=== PATIENT | female | born 1995 | race Caucasian/White ===

== ENCOUNTER 2021-06-02 14:40 | Outpatient (REF) | payer OTHER, SELFPAY ==
[2021-06-02 17:31] LABS: Influenza A PCR NEGATIVE (Negative); Influenza B PCR NEGATIVE (Negative); Resp Syncy Virus RNA Qual PCR NEGATIVE (Negative); SARS COV2 PCR INHOUSE NEGATIVE (Negative)
== END 2021-06-02 14:41 | disposition home or self-care (01) ==
LOC: HO.LAB 14:40
PROVIDERS: Visit Provider Physician Assistant Medical
DX: Z20.822 Contact with and (suspected) exposure to COVID-19 (principal); J06.9 Acute upper respiratory infection, unspecified
CPT/HCPCS: 0241U; 36415

== ENCOUNTER 2022-06-28 09:17 | Outpatient (REF) | payer OTHER, SELFPAY ==
[2022-06-28 11:54] LABS: Hematocrit 44.1 % (37.0-47.0); Hemoglobin 14.1 g/dl (12.0-16.0); Mean Corpuscular Hemoglobin 27.1 pg (27.0-33.0); Mean Corpuscular Volume 84.8 fL (80.0-98.0); Mean Platelet Volume 9.2 fL (9.4-12.3); Platelet Count 339 X10*3/uL (160-400); White Blood Count 5.4 X10*3/uL (4.8-10.8)
[2022-06-28 12:06] LABS: Anion Gap 16 (12-20); Blood Urea Nitrogen 7 mg/dL (9-16); Carbon Dioxide 23 mmol/L (22-29); Chloride 104 mmol/L (96-108); Estimated Glomerular Filt Rate > 60; Glucose Random 93 mg/dL (60-115); Potassium 4.2 mmol/L (3.3-5.1); Sodium 139 mmol/L (135-145)
[2022-06-28 12:31] LABS: Thyroid Stimulating Hormone 0.66 uIU/mL (0.32-4.0)
== END 2022-06-28 09:18 | disposition home or self-care (01) ==
LOC: HO.HMGCLDS 09:17
PROVIDERS: PCP Internal Medicine; Visit Provider Internal Medicine
DX: J45.909 Unspecified asthma, uncomplicated (principal)
CPT/HCPCS: 36415; 80048; 84443; 85027

== ENCOUNTER 2023-09-26 07:49 | Outpatient (AMB) | payer OTHER, SELFPAY ==
[2023-09-26 08:10] VITALS: BP 110/76; PULSE 97; O2SAT 96; BMI 39.1
--- NOTE | 2023-09-26 08:10 | A.OFFPC_ITS ---
Vital Signs 09/26/23 08:10 Height 5 ft Weight 200 lb BMI 39.1 BP 110/76 Blood Pressure Location Lt brachial Position Sitting Pulse 97 Pulse Source Pulse Oximeter Pulse Oximetry (%) 96 Oxygen Delivery Method Room Air Intake Visit Reasons: PE Intake Note: Pt is here today for PE. Pt states that she has upcoming appt for a pap with [facility] [place]. Allergies No Known Allergies Allergy (Verified 09/26/23 08:18) Medication List - Last Reconciled 09/26/23 by Columba Rollins MD albuterol sulfate 90 mcg/actuation (Ventolin HFA) 1 inh inhalation QID PRN Tobacco use date assessed: 09/26/23 Dental Screening Dental Screen Date: 09/26/23 Did you have a dental visit in the last 12 months?: Yes Did you have a dental problem in the last 6 months where you did not have access to dental care?: No Was dental information given to patient?: Patient has dentist HPI PE HPI Details Pt presents for PE. Pt c/o night sweats for 1 year, most nights and insomnia, getting 4 hours of sleep. Pt has difficulty concentrating at work and feeling anxious that she will lose her job for the last 6 months. Patient denies suicidal ideation but has been feeling depressed most days of the week. PFSH Family History Father Schizophrenia Thyroid disease Mother Depression Social History Household Members Other:: works as manager corporate strategy company, exercise 3 x a week, lives with boyfriend Housing: Apartment Patient Tobacco Use Status: Never used Tobacco e-Cigarette/Vaping Use: Never Used service: No Current occupational status: employed Cognitive needs: No Hearing needs: No Vision needs: Yes Questionnaire PHQ-9 Over the last 2 weeks, how often have you been bothered by any of the following problems? 1. Little interest or pleasure in doing things: more than half the days 2. Feeling down, depressed, or hopeless: nearly every day 3. Trouble falling or staying asleep, or sleeping too much: nearly every day 4. Feeling tired or having little energy: nearly every day 5. Poor appetite or overeating: nearly every day 6. Feeling bad about yourself - or that you are a failure or have let yourself or your family down: nearly every day 7. Trouble concentrating on things, such as reading the newspaper or watching television: nearly every day 8. Moving or speaking so slowly that other people could have noticed. Or the opposite - being so fidgety or restless that you have been moving around a lot more than usual: more than half the days 9. Thoughts that you would be better off or of hurting yourself in some way: not at all Total score: 22 Depression Screening Interpretation: Positive Depression Screening Done: Yes 78980 - PHQ-9 Billing: Yes Source: Developed by Drs. Jaime Ward, Roxie Sauer, Alfonso Farley and colleagues, with an educational tanya from [employer]. Thrive Questionnaire Date Thrive assessed: 09/26/23 I am a: Patient What is your living situation today?: I have a steady place to live Within the past 12 months, did the food you bought not last and you didn't have the money to get more?: Never true Within the past 12 months, did you worry whether your food would run out before you got money to buy more?: Never true Do you have trouble paying for medicines?: No Do you have trouble getting transportation to medical appointments?: No Do you have trouble paying your heating and electricity bill?: No Do you have trouble taking care of your child, family member or friend?: No Do you have trouble with day-to-day activities such as bathing, preparing meals, shopping, managing finances, etc.?: No Are you currently unemployed and looking for a job?: No Are you interested in more education?: No Please select the resources that you would like help with: None Currently or been in a relationship where the following occur: no concerns reported THRIVE Score: 0 AUDIT C Alcohol Use Questionnaire (AUDIT-C) 1. How often do you have a drink containing alcohol?: Monthly or less 2. How many drinks containing alcohol do you have on a typical day when you are drinking?: 1 or 2 3. How often do you have six or more drinks on one occasion?: Never Total Score: 1 NOLVIA-7 AMB Questionnaire NOLVIA-7 Date NOLVIA - 7 assessed: 09/26/23 Feeling nervous, anxious, or on edge: 3 = Nearly every day Not being able to stop or control worryin = Nearly every day Worrying too much about different things: 3 = Nearly every day Trouble relaxin = Nearly every day Being so restless that it is hard to sit still: 2 = More than half the days Becoming easily annoyed or irritable: 2 = More than half the days Feeling afraid as if something awful might happen: 3 = Nearly every day Total NOLVIA-7 score (0-4 normal; 5-9 mild; 10-14 moderate; 15-21 severe): 19 Source: Developed by Drs. Jaime Ward, Roxie Sauer, Alfonso Farley and colleagues, with an educational tanya from [employer]. NOLVIA-7 Assessment Billing NOLVIA-7 Assessment Tool: NOLVIA-7 Assessment 64429 Review of Systems Const All systems reviewed & are unremarkable except as noted in HPI and below Reports no additional complaints Eyes Reports no additional complaints ENT Reports no additional complaints Card Reports no additional complaints Resp Reports no additional complaints GI Reports no additional complaints Reports no additional complaints Physical exam (Primary Care) Vital Signs: Last Vital Signs Pulse 97 09/26/23 08:10 BP 110/76 09/26/23 08:10 Pulse Ox 96 09/26/23 08:10 Oxygen Delivery Method Room Air 09/26/23 08:10 BMI result Body Mass Index 39.1 Tobacco/Smoking Status: Tobacco use Status Tobacco use date assessed 09/26/23 09/26/23 08:21 Patient Tobacco Use Status Never used Tobacco 09/26/23 08:21 e-Cigarette/Vaping Use Never Used 09/26/23 08:10 Depression Screening Interpretation: Positive Currently or been in a relationship where the following occur: no concerns reported Const General: no acute distress [facility] Head: Yes normal to inspection Ears: hearing grossly normal bilaterally General nose exam: Normal external nose present Face and sinus: Yes normal facial exam Mouth: Normal oral and palatal mucosa present Throat: Yes posterior oropharynx normal Eyes General: appearance normal, both eyes and all related structures Neck Neck: Yes no lymphadenopathy and Yes supple Resp Effort & Inspection: normal respiratory effort Auscultation: clear to auscultation bilaterally Cardio Rhythm: regular rhythm Heart sounds: S1 normal heart sound present and S2 normal heart sound present GI Inspection: Yes normal to inspection Palpation (GI): Soft to palpation Percussion: Yes normal to percussion Auscultation: normal bowel sounds Assessment and Plan Assessment & Plan (1) Anxiety: Code(s): F41.9 - Anxiety disorder, unspecified Plan: Stress management mindfulness regular physical activity discussed with the patient. She will be referred to counseling. Zoloft 25 for the 1st week then increase to 50 mg daily will be started. Patient will follow-up in 1 month (2) Annual physical exam: Code(s): Z00.00 - Encounter for general adult medical examination without abnormal findings Plan: Well-balanced diet regular physical activity weight loss discussed with the patient. She will have a fasting blood work today. pt will have a Pap smear by [facility] (3) Normal pelvic exam: Comment: [facility] Code(s): Z01.419 - Encounter for gynecological examination (general) (routine) without abnormal findings Orders: Orders Comprehensive Met. Panel Today F41.9 - Anxiety disorder, unspecified, R00.0 - Tachycardia, unspecified, Z00.00 - Encounter for general adult medical examination without abnormal findings Lipid Panel Today F41.9 - Anxiety disorder, unspecified, R00.0 - Tachycardia, unspecified, Z00.00 - Encounter for general adult medical examination without abnormal findings TSH reflex Free T4 Today F41.9 - Anxiety disorder, unspecified, R00.0 - Tachycardia, unspecified, Z00.00 - Encounter for general adult medical examination without abnormal findings Complete Blood Count Auto Diff Today F41.9 - Anxiety disorder, unspecified, R00.0 - Tachycardia, unspecified, Z00.00 - Encounter for general adult medical examination without abnormal findings Vitamin D 25-OH Total Today F41.9 - Anxiety disorder, unspecified, R00.0 - Tachycardia, unspecified, Z00.00 - Encounter for general adult medical examination without abnormal findings Referrals Counseling Referral F41.9 - Anxiety disorder, unspecified Medications: New sertraline 1/2 tabl x 1 week, then 1 QD 50 mg PO DAILY 30 tabs 3RF Coding Level of Care Code Est Pt Prev Care 18-39y(13288) Diagnoses Anxiety F41.9 Annual physical exam Z00.00 Normal pelvic exam Z01.419 Additional Codes NOLVIA-7 Assessment Billing - NOLVIA-7 Assessment Tool: NOLVIA-7 Assessment 05731 ([id number])
== END 2023-09-26 09:24 | disposition home or self-care (01) ==
PROVIDERS: Visit Provider Internal Medicine
DX: Z00.00 Encounter for general adult medical examination without abnormal findings (principal); F41.9 Anxiety disorder, unspecified
CPT/HCPCS: 96127; 99395

== ENCOUNTER 2023-10-06 08:35 | Outpatient (REF) | payer OTHER, SELFPAY ==
[2023-09-26 11:12] LABS: MANUAL DIFF FLAG NO
[2023-09-26 11:38] LABS: Basophils Percent Auto 0.7 % (0-2); Eosinophils Absolute Auto 0.2 X10*3/uL (0.0-0.4); Eosinophils Percent Auto 3.4 % (0-4); Hematocrit 39.5 % (37.0-47.0); Hemoglobin 12.9 g/dl (12.0-16.0); Imm Gran Abs Auto 0.03 X10*3/uL (0.00-0.03); Imm Gran Pct Auto 0.7 % (0.0-0.4); Lymphocytes Percent Auto 21.9 % (20-40); Mean Corpuscular HGB Conc 32.7 g/dl (31.0-35.0); Mean Corpuscular Hemoglobin 27.9 pg (27.0-33.0); Mean Corpuscular Volume 85.3 fL (80.0-98.0); Mean Platelet Volume 9.3 fL (9.4-12.3); Monocytes Absolute Auto 0.3 X10*3/uL (0.1-1.2); Monocytes Percent Auto 6.5 % (2-11); Neutrophils Percent Auto 66.8 % (45-73); Platelet Count 326 X10*3/uL (160-400); Red Blood Count 4.63 X10*6/uL (4.20-5.50); Red Cell Distribution Width 14.2 % (11.0-16.0); White Blood Count 4.5 X10*3/uL (4.8-10.8)
[2023-09-26 12:22] LABS: Alanine Aminotransferase 10 U/L (0-31); Albumin Level 4.3 g/dL (3.5-5.0); Alkaline Phosphatase 63 U/L (39-117); Anion Gap 16 (12-20); Aspartate Amino Transferase 12 U/L (5-31); Bilirubin Total 0.3 mg/dL (0.0-1.0); Blood Urea Nitrogen 9 mg/dL (9-16); Carbon Dioxide 23 mmol/L (22-29); Chloride 107 mmol/L (96-108); Cholesterol 242 mg/dL (<200); Estimated Glomerular Filt Rate > 60; Glucose Random 92 mg/dL (60-115); HDL Cholesterol 46 mg/dL (>40); LDL Cholesterol Calculated 172 mg/dL (<100); Potassium 4.1 mmol/L (3.3-5.1); Sodium 142 mmol/L (135-145); Total Protein 7.3 g/dL (6.5-8.0); Triglycerides 121 mg/dL (<150)
[2023-09-26 13:23] LABS: TSH reflex Free T4 0.49 uIU/mL (0.32-4.0); Vitamin D 25-OH Total 17.4 ng/mL (>30)
== END 2023-10-06 08:36 | disposition home or self-care (01) ==
LOC: HO.HMGCLDS 08:35
PROVIDERS: PCP Internal Medicine; Visit Provider Internal Medicine
DX: Z00.00 Encounter for general adult medical examination without abnormal findings (principal); R00.0 Tachycardia, unspecified; F41.9 Anxiety disorder, unspecified
CPT/HCPCS: 36415; 80053; 80061; 82306; 84443; 85025

== ENCOUNTER 2023-10-16 09:19 | Outpatient (REF) | payer OTHER, SELFPAY ==
[2023-10-17 11:43] LABS: CT PCR NOT DETECTED (Not Detect.); NG PCR NOT DETECTED (Not Detect.)
[2023-10-17 12:48] LABS: BV Int Neg Control Negative (Negative); BV Int Pos Control Positive (Positive)
== END 2023-10-16 09:20 | disposition home or self-care (01) ==
LOC: HO.LNP 09:19
PROVIDERS: PCP Internal Medicine; Visit Provider Advanced Practice Midwife
DX: Z12.4 Encounter for screening for malignant neoplasm of cervix (principal); Z20.2 Contact with and (suspected) exposure to infections with a predominantly sexual mode of transmission; N94.4 Primary dysmenorrhea
CPT/HCPCS: 0353U; 87480; 87510; 87660; 88142

== ENCOUNTER 2023-10-16 09:19 | Outpatient (AMB) | payer OTHER, SELFPAY ==
[2023-10-16 09:21] VITALS: BP 112/70; BMI 38.3
--- NOTE | 2023-10-16 09:21 | MHC.OFFVIS ---
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: Residential Property Tax Appraiser Present (Aidyn) Allergies No Known Allergies Allergy (Verified 10/16/23 09:24) Medication List - Last Reconciled 10/16/23 by Chloe Donis CNM albuterol sulfate 90 mcg/actuation (Ventolin HFA) 1 inh inhalation QID PRN sertraline 50 mg PO DAILY Is last menstrual period known: Yes Last menstrual period: 10/09/23 Post menopausal: No HPI New Patient Annual HPI Details 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 She is looking for therapist but has not found 1 yet mainly her concern is work stress she does not talk with her family too much either but things are good in her relationship they have been together for 12 years and they are planning on eloping with just a few people close family at the wedding this year if she gets she would be fine with it and so she has not interested in contraception. [facility] Medical History (Updated 10/16/23 @ 10:07 by Chloe Donis CNM) Asthma Depression Family History Father Schizophrenia Thyroid disease Mother Depression Social History Household Members Other:: works as [employer], exercise 3 x a week, lives with boyfriend Housing: Apartment Patient Tobacco Use Status: Never used Tobacco e-Cigarette/Vaping Use: Never Used service: No Current occupational status: employed Cognitive needs: No Hearing needs: No Vision needs: Yes Female Reproductive History Menstrual Age of Menarche: 11 Duration of menses: 3-5 days Date of last menstrual period: 10/09/23 control method: none Total pregnancies: 0 Physical Exam Vital Signs: Last Vital Signs BP 112/70 02/26/24 09:21 BMI result Body Mass Index 38.3 Const General: healthy appearing, comfortable, no acute distress, well developed and alert Nutritional Appearance: average body habitus Orientation/consciousness: patient oriented x3 Limitations: no limitations HEENT Head: Yes normocephalic Neck Neck: Yes normal visual inspection Thyroid: Thyroid normal Chest Chest palpation & inspection: normal inspection of the chest Breast/axilla inspection: normal inspection of the breasts and normal inspection of the axillae Breast/axilla palpation: normal palpation of the breasts and normal palpation of the axillae Resp Effort & Inspection: normal respiratory effort GI Inspection: Yes normal to inspection, No Abdominal wall edema and No distended Palpation (GI): Soft to palpation and nontender General: Yes bladder normal to palpation External Female Exam: normal external appearance and normal appearance of the urethra Speculum Exam - Vagina: normal appearance of the vagina, normal palpation and normal vaginal discharge Speculum Exam - Cervix: normal appearance of the cervix, normal palpation and nontender Bimanual exam- vagina & uterus: normal bimanual exam, normal palpation, uterine size normal, bladder normal to palpation, consistency normal, normal palpation, uterine mobility normal, uterine shape normal, No Cervical tenderness present, non-tender and no cervical motion tenderness Bimanual Exam- Adnexa, other: normal adnexae, no masses, normal and No adnexal tenderness Neuro General: patient oriented x3 Assessment & Plan Assessment & Plan (1) Primary dysmenorrhea: Code(s): N94.4 - Primary dysmenorrhea (2) Well woman exam with routine gynecological exam: Code(s): Z01.419 - Encounter for gynecological examination (general) (routine) without abnormal findings (3) Family planning counseling: Comment: preconception counseling Code(s): Z30.09 - Encounter for other general counseling and advice on contraception Plan -----Discussed in this visit the following: healthy balanced diet, regular and consistent exercise, getting recommended health screens, doing the best she can for her particular health concerns, kegel exercises, pap smear screening and followup recommendations, mammography screening and SBE, normal changes in cycles in her life stage--- .---I discussed with pt some of the optimal strategies for planning a , including achieving the best health she can before , including heathy balanced diet, exercise, wt loss to ideal BMI if appropriate, avoiding toxic substances and medications, not smoking, and taking a multivitamin w folic acid daily. Any specific health concerns should be managed before seeking/ putting oneself at risk of pregancy. . I also discussed emotional and relationship and support readiness before embarking on . . She feels they are in a good place right now. Also discussed availability full scope and delivery care in the entire [facility] Discussed that taking ibuprofen on a very limited basis as she has for the 1st day or 2 of her menses is not excessive use but she can review it more carefully with the pharmacist when she picks up her next sertraline dose this week. Since she has not interested in any control at this time there would not be any other hormonal management available to her for her heavy painful periods discussed other comfort measures . Coding Level of Care Code New Pt Prev Care 18-39yr(51713 Diagnoses Primary dysmenorrhea N94.4 Well woman exam with routine gynecological exam Z01.419 Family planning counseling Z30.09
== END 2023-10-16 11:17 | disposition home or self-care (01) ==
LOC: HO.HWSM 09:20
PROVIDERS: PCP Internal Medicine; Visit Provider Advanced Practice Midwife
DX: Z01.419 Encounter for gynecological examination (general) (routine) without abnormal findings (principal); N94.4 Primary dysmenorrhea; Z30.09 Encounter for other general counseling and advice on contraception
CPT/HCPCS: 99385

== ENCOUNTER 2023-10-20 10:54 | Outpatient (AMB) | payer OTHER, SELFPAY ==
[2023-10-20 11:07] VITALS: BP 128/80; PULSE 86; O2SAT 97; BMI 38.7
--- NOTE | 2023-10-20 11:07 | MHC.PC.OV ---
Vital Signs 10/20/23 11:07 Height 5 ft Weight 198 lb BMI 38.7 BP 128/80 Blood Pressure Location Lt brachial Position Sitting Pulse 86 Pulse Source Pulse Oximeter Pulse Oximetry (%) 97 Oxygen Delivery Method Room Air Intake Visit Reasons: 1 month follow up Intake Note: Pt is here today for 1 month follow up visit on anxiety. Allergies No Known Allergies Allergy (Verified 10/20/23 11:09) Medication List - Last Reconciled 10/20/23 by Columba Rollins MD albuterol sulfate 90 mcg/actuation (Ventolin HFA) 1 inh inhalation QID PRN sertraline 50 mg PO DAILY Tobacco use date assessed: 10/20/23 HPI 1 month follow up HPI Details Pt presents for follow-up of chronic anxiety slightly improved on sertraline. Patient is waiting for the appointment with a counselor. She complains of persistent palpitations on and off at least 3 times a week, usually at rest. Patient denies exercise induced palpitations PFSH Medical History (Updated 10/20/23 @ 11:39 by Columba Rollins MD) Asthma Depression Family History Father Schizophrenia Thyroid disease Mother Depression Social History Household Members Other:: works as regional transportation manager company, exercise 3 x a week, lives with boyfriend Housing: Apartment Patient Tobacco Use Status: Never used Tobacco e-Cigarette/Vaping Use: Never Used service: No Current occupational status: employed Cognitive needs: No Hearing needs: No Vision needs: Yes Female Reproductive History Menstrual Age of Menarche: 11 Questionnaire PHQ-9 Over the last 2 weeks, how often have you been bothered by any of the following problems? 1. Little interest or pleasure in doing things: several days 2. Feeling down, depressed, or hopeless: several days 3. Trouble falling or staying asleep, or sleeping too much: nearly every day 4. Feeling tired or having little energy: nearly every day 5. Poor appetite or overeating: more than half the days 6. Feeling bad about yourself - or that you are a failure or have let yourself or your family down: several days 7. Trouble concentrating on things, such as reading the newspaper or watching television: more than half the days 8. Moving or speaking so slowly that other people could have noticed. Or the opposite - being so fidgety or restless that you have been moving around a lot more than usual: several days 9. Thoughts that you would be better off or of hurting yourself in some way: not at all Total score: 14 Depression Screening Interpretation: Positive (Continue sertraline and start counseling follow-up in 4 months or as needed) Depression Screening Follow-up: Existing condition and In treatment Depression Screening Done: Yes Source: Developed by Drs. Jaime Ward, Roxie Sauer, Alfonso Farley and colleagues, with an educational tanya from [employer]. Thrive Questionnaire Date Thrive assessed: 09/26/23 NOLVIA-7 AMB Questionnaire NOLVIA-7 Date NOLVIA - 7 assessed: 09/26/23 Source: Developed by Drs. Jaime Ward, Roxie Sauer, Alfonso Farley and colleagues, with an educational tanya from [employer]. Review of Systems Const All systems reviewed & are unremarkable except as noted in HPI and below Reports no additional complaints Eyes Reports no additional complaints ENT Reports no additional complaints Card Reports no additional complaints Resp Reports no additional complaints GI Reports no additional complaints Physical exam (Primary Care) Vital Signs: Last Vital Signs Pulse 86 10/20/23 11:07 BP 128/80 10/20/23 11:07 Pulse Ox 97 10/20/23 11:07 Oxygen Delivery Method Room Air 10/20/23 11:07 BMI result Body Mass Index 38.7 Tobacco/Smoking Status: Tobacco use Status Tobacco use date assessed 10/20/23 10/20/23 11:11 Patient Tobacco Use Status Never used Tobacco 10/20/23 11:11 e-Cigarette/Vaping Use Never Used 10/20/23 11:11 PHQ-9: PHQ-9 Score PHQ-9: Total score 14 10/20/23 11:23 Depression Screening Interpretation: Positive (Continue sertraline and start counseling follow-up in 4 months or as needed) Depression Screening Follow-up: Existing condition and In treatment Thrive Assessment: Date of Thrive Assessment Date Thrive assessed 09/26/23 10/20/23 11:11 Const General: no acute distress HENMT Head: Yes normal to inspection Resp Effort & Inspection: normal respiratory effort Auscultation: clear to auscultation bilaterally Cardio Rhythm: regular rhythm Heart sounds: S1 normal heart sound present and S2 normal heart sound present Assessment and Plan Assessment & Plan (1) Hyperlipidemia: Code(s): E78.5 - Hyperlipidemia, unspecified Plan: Low-cholesterol diet fish oil supplement and regular physical activity discussed with the patient check lipid profile in 4 months (2) Tachycardia: Comment: evaluation by cardiology in 2017, normal echo and 24 hr Holter, tried Propanolol not effective for palpitations Code(s): R00.0 - Tachycardia, unspecified Plan: Obtain 7 day Holter monitor (3) Anxiety: Comment: Started on sertraline 10/14, will follow-up with counseling Code(s): F41.9 - Anxiety disorder, unspecified Plan: Continue sertraline and patient will be starting counseling. She will follow-up in 2-4 months or p.r.n. Orders: Orders Lipid Panel 4 Months E78.5 - Hyperlipidemia, unspecified, R00.0 - Tachycardia, unspecified Vitamin D 25-OH Total 4 Months E78.5 - Hyperlipidemia, unspecified, R00.0 - Tachycardia, unspecified ECG 7 day holter monitor Today R00.0 - Tachycardia, unspecified Coding Level of Care Code Est Pt Level 4 (69971) Diagnoses Hyperlipidemia E78.5 Tachycardia R00.0 Anxiety F41.9
== END 2023-10-20 11:34 | disposition home or self-care (01) ==
PROVIDERS: PCP Internal Medicine; Visit Provider Internal Medicine
DX: E78.5 Hyperlipidemia, unspecified (principal); R00.0 Tachycardia, unspecified; F41.9 Anxiety disorder, unspecified
CPT/HCPCS: 99214

== ENCOUNTER → 2023-10-26 07:08 | Outpatient (REF) | payer OTHER, SELFPAY ==
--- NOTE | 2023-10-26 07:11 | HM_ITS ---
Conclusion: 1. Patient was monitored for total period of 6 days and 12 hours 2. Baseline was normal sinus rhythm with average heart rate of 88 beats per minute 3. No significant arrhythmias or pauses noted 4. No patient reported events MTDD
== END ==
LOC: HO.CARD 07:08
PROVIDERS: Visit Provider Internal Medicine
DX: R00.0 Tachycardia, unspecified (principal); I49.3 Ventricular premature depolarization
CPT/HCPCS: 93242

== ENCOUNTER → 2023-10-26 07:11 | Outpatient (BNV) | payer OTHER, SELFPAY | PROVIDERS: Visit Provider Internal Medicine Cardiovascular Disease | DX: R00.0 Tachycardia, unspecified (principal) | CPT/HCPCS: 93244 ==

== ENCOUNTER 2023-11-24 13:57 | Outpatient (REF) | payer OTHER, SELFPAY | END 2023-11-24 13:58 | disposition home or self-care (01) | LOC: HO.LNP 13:57 | PROVIDERS: Visit Provider Advanced Practice Midwife | DX: Z01.419 Encounter for gynecological examination (general) (routine) without abnormal findings (principal) | CPT/HCPCS: 88142 ==

== ENCOUNTER 2023-11-24 13:57 | Outpatient (AMB) | payer OTHER, SELFPAY ==
[2023-11-24 14:31] VITALS: BP 120/76; BMI 38.7
--- NOTE | 2023-11-24 14:31 | MHC.OFFVIS ---
Intake Vital Signs 11/24/23 14:31 Height 5 ft Weight 198 lb BMI 38.7 BP 120/76 Intake Visit Reasons: Repeat pap Metal Tile Lather Required: No Information Interpreted: non-clinical & clinical Cryogenics Engineer: Cryogenics Engineer Present ([place]) Allergies No Known Allergies Allergy (Verified 11/24/23 14:32) Medication List - Last Reconciled 11/24/23 by Chloe Donis CNM albuterol sulfate 90 mcg/actuation (Ventolin HFA) 1 inh inhalation QID PRN sertraline 50 mg PO DAILY Is last menstrual period known: Yes Last menstrual period: 11/10/23 Post menopausal: No HPI Repeat pap HPI Details Patient is here just her repeat her Pap she has not having any problems at all she is using condoms for control she has not interested in any other method at this time her last menstrual period was November 09 so she does think she may be ovulating now the last Pap smear came back unacceptable secondary to obscuring mucus. If she is ovulating and the mucus which is naturally occurring obscures it I do not have any other suggestions at this time. I did share with the patient that review of on satisfactory Paps has taken place with the cytology office and they do have strict criteria criteria they are using. PFSH Medical History Asthma Depression Family History Father Schizophrenia Thyroid disease Mother Depression Social History Household Members Other:: works as planning and analysis manager company, exercise 3 x a week, lives with boyfriend Housing: Apartment Patient Tobacco Use Status: Never used Tobacco e-Cigarette/Vaping Use: Never Used service: No Current occupational status: employed Cognitive needs: No Hearing needs: No Vision needs: Yes Female Reproductive History Menstrual Age of Menarche: 11 Date of last menstrual period: 11/10/23 control method: none Date of last pap smear: 10/17/23 (unsatisfactory) Physical Exam Vital Signs: Last Vital Signs BP 120/76 11/24/23 14:31 BMI result Body Mass Index 38.7 External Female Exam: normal external appearance and normal appearance of the urethra Speculum Exam - Vagina: normal appearance of the vagina and normal vaginal discharge Speculum Exam - Cervix: normal appearance of the cervix and Cervical os closed Results Reviewed Results Reviewed: eliseo: Kassie Luis Age/Sex: 28/F Attending: Chloe Donis CNM : 1995 Submitted by: Chloe Donis CNM Copies to: Columba Rollins MD MR #: [id number] Status: DEP REF Collected: 10/16/23 Location: [facility] Received: 10/17/23 Interpretation Unsatisfactory. Obscuring material consistent with mucus. Clinical Information LMP: 09/29/23 Previous PAP test: First pap Material Received ThinPrep-Cervical Copies To Columba Rollins MD [address] [place] [address] [place] [address] Chloe Donis CNM [address] [place] [address] [place] [address] Electronically Signed By: CHRISTI Richey (ASCP) 10/27/23 1142 The Pap Test is a screening procedure with the inherent possibility of both false negative and false positive results. Results should be interpreted in the context of historic and current clinical findings. Reliability of the Pap Test is enhanced by performing the test on a regular repetitive basis. Patient: Kassie Luis Age/Sex: 28/F MR#: [id number] Page 1 of 1 Assessment & Plan Assessment & Plan (1) Well woman exam with routine gynecological exam: Comment: 1st Pap done 10/14, 1 week after beginning of menses no excessive mucus noted an exam however the Pap was unsatisfactory secondary to obscuring mucus ; Pap smear repeated 11/24/23 she May be approaching or just past ovulation no excessive mucus seen today either. Code(s): Z01.419 - Encounter for gynecological examination (general) (routine) without abnormal findings Plan Pap smear was repeated we are hoping that this 1 comes back satisfactory. Offered to show her her very normal appearing healthy cervix with normal scant amount of mucus not especially consistent with ovulation at this very moment. She is happy with condoms for now. Declined any other testing. RTC 1 year Coding Level of Care Code Est Pt Level 3 (31365) Diagnoses Well woman exam with routine gynecological exam Z01.419
== END 2023-11-24 14:52 | disposition home or self-care (01) ==
LOC: HO.HWSM 13:57
PROVIDERS: Visit Provider Advanced Practice Midwife
DX: Z01.419 Encounter for gynecological examination (general) (routine) without abnormal findings (principal)
CPT/HCPCS: 99024

== ENCOUNTER 2024-04-11 11:09 | Outpatient (AMB) | payer OTHER, SELFPAY ==
[2024-04-11 11:26] VITALS: BP 136/86; PULSE 89; O2SAT 95; BMI 38.1
--- NOTE | 2024-04-11 11:26 | MHC.PC.OV ---
Vital Signs 04/11/24 11:26 Height 5 ft Weight 195 lb BMI 38.1 BP 136/86 Blood Pressure Location Lt brachial Position Sitting Pulse 89 Pulse Source Pulse Oximeter Pulse Oximetry (%) 95 Oxygen Delivery Method Room Air Intake Visit Reasons: 4 month follow up Intake Note: Pt is here today for4 months follow up visit. Allergies No Known Allergies Allergy (Verified 04/11/24 11:27) Medication List - Last Reconciled 04/11/24 by Columba Rollins MD albuterol sulfate 90 mcg/actuation (Ventolin HFA) 1 inh inhalation QID PRN sertraline 50 mg PO DAILY Tobacco use date assessed: 04/11/24 Dental Screening Dental Screen Date: 09/26/23 HPI 4 month follow up HPI Details Pt presents for f/u anxiety/depression stable on Zoloft. Pt c/o R shoulder pain when reaching out for 1 year started after patient was working out at the gym. 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 1. Little interest or pleasure in doing things: more than half the days 2. Feeling down, depressed, or hopeless: several days 3. Trouble falling or staying asleep, or sleeping too much: nearly every day 4. Feeling tired or having little energy: nearly every day 5. Poor appetite or overeating: not at all 6. Feeling bad about yourself - or that you are a failure or have let yourself or your family down: not at all 7. Trouble concentrating on things, such as reading the newspaper or watching television: nearly every day 8. Moving or speaking so slowly that other people could have noticed. Or the opposite - being so fidgety or restless that you have been moving around a lot more than usual: not at all 9. Thoughts that you would be better off or of hurting yourself in some way: not at all Total score: 12 Depression Screening Interpretation: Positive (Continue counseling and Zoloft) Depression Screening Follow-up: Existing condition and In treatment Depression Screening Done: Yes 70722 - PHQ-9 Billing: Yes Source: Developed by Drs. Jaime Ward, Roxie Sauer, Alfonso Farley and colleagues, with an educational tanya from [employer]. Thrive Questionnaire Date Thrive assessed: 04/11/24 I am a: Patient What is your living situation today?: I have a steady place to live Within the past 12 months, did the food you bought not last and you didn't have the money to get more?: Never true Within the past 12 months, did you worry whether your food would run out before you got money to buy more?: Never true Do you have trouble paying for medicines?: No Do you have trouble getting transportation to medical appointments?: No Do you have trouble paying your heating and electricity bill?: No Do you have trouble taking care of your child, family member or friend?: No Do you have trouble with day-to-day activities such as bathing, preparing meals, shopping, managing finances, etc.?: Yes Are you currently unemployed and looking for a job?: No Are you interested in more education?: No Please select the resources that you would like help with: None Currently or been in a relationship where the following occur: No concerns reported THRIVE Score: 0 AUDIT C Alcohol Use Questionnaire (AUDIT-C) 1. How often do you have a drink containing alcohol?: Monthly or less 2. How many drinks containing alcohol do you have on a typical day when you are drinking?: 1 or 2 3. How often do you have six or more drinks on one occasion?: Never Total Score: 1 NOLVIA-7 AMB Questionnaire NOLVIA-7 Date NOLVIA - 7 assessed: 04/11/24 Feeling nervous, anxious, or on edge: 3 = Nearly every day Not being able to stop or control worryin = Several days Worrying too much about different things: 1 = Several days Trouble relaxin = More than half the days Being so restless that it is hard to sit still: 1 = Several days Becoming easily annoyed or irritable: 1 = Several days Feeling afraid as if something awful might happen: 1 = Several days Total NOLVIA-7 score (0-4 normal; 5-9 mild; 10-14 moderate; 15-21 severe): 10 Source: Developed by Drs. Jaime Ward, Roxie Sauer, Alfonso Farley and colleagues, with an educational tanya from [employer]. NOLVIA-7 Assessment Billing NOLVIA-7 Assessment Tool: NOLVIA-7 Assessment 70934 Review of Systems Const All systems reviewed & are unremarkable except as noted in HPI and below Card Reports no additional complaints Resp Reports no additional complaints GI Reports no additional complaints Reports no additional complaints Physical exam (Primary Care) Vital Signs: Last Vital Signs Pulse 89 04/11/24 11:26 BP 136/86 04/11/24 11:26 Pulse Ox 95 04/11/24 11:26 Oxygen Delivery Method Room Air 04/11/24 11:26 BMI result Body Mass Index 38.1 Tobacco/Smoking Status: Tobacco use Status Tobacco use date assessed 04/11/24 04/11/24 11:29 Patient Tobacco Use Status Never used Tobacco 04/11/24 11:29 e-Cigarette/Vaping Use Never Used 04/11/24 11:26 PHQ-9: PHQ-9 Score PHQ-9: Total score 12 04/11/24 11:29 Depression Screening Interpretation: Positive (Continue counseling and Zoloft) Depression Screening Follow-up: Existing condition and In treatment Thrive Assessment: Date of Thrive Assessment Date Thrive assessed 04/11/24 04/11/24 11:29 Currently or been in a relationship where the following occur: No concerns reported Const General: no acute distress Eyes General: appearance normal, both eyes and all related structures Resp Effort & Inspection: normal respiratory effort Auscultation: clear to auscultation bilaterally Cardio Rhythm: regular rhythm Heart sounds: S1 normal heart sound present and S2 normal heart sound present Extrem Other: Slightly decreased range of motion of the right shoulder, anterior aspect tenderness no soft tissue swelling Assessment and Plan Assessment & Plan (1) Hyperlipidemia: Code(s): E78.5 - Hyperlipidemia, unspecified Plan: Continue low-cholesterol diet check lipid profile (2) Shoulder pain, right: Code(s): M25.511 - Pain in right shoulder Plan: Check x-ray and referred to physical therapy (3) Depression: Code(s): F32.A - Depression, unspecified Plan: Continue Zoloft and counseling, CBT Orders: Orders Lipid Panel Today E78.5 - Hyperlipidemia, unspecified Vitamin D 25-OH Total Today E78.5 - Hyperlipidemia, unspecified XR shoulder RT min 2V Today M25.511 - Pain in right shoulder Complete Blood Count Auto Diff 6 Months E78.5 - Hyperlipidemia, unspecified, Z00.00 - Encounter for general adult medical examination without abnormal findings Vitamin D 25-OH Total 6 Months E78.5 - Hyperlipidemia, unspecified, Z00.00 - Encounter for general adult medical examination without abnormal findings PT Evaluation and Treatment Today M25.511 - Pain in right shoulder Comprehensive [place]. Panel Fast 6 Months E78.5 - Hyperlipidemia, unspecified, Z00.00 - Encounter for general adult medical examination without abnormal findings Lipid Panel 6 Months E78.5 - Hyperlipidemia, unspecified, Z00.00 - Encounter for general adult medical examination without abnormal findings TSH reflex Free T4 6 Months E78.5 - Hyperlipidemia, unspecified, Z00.00 - Encounter for general adult medical examination without abnormal findings Coding Level of Care Code Est Pt Level 4 (26242) Diagnoses Hyperlipidemia E78.5 Shoulder pain, right M25.511 Depression F32.A Additional Codes NOLVIA-7 Assessment Billing - NOLVIA-7 Assessment Tool: NOLVIA-7 Assessment 72280 ([id number])
== END 2024-04-11 12:26 | disposition home or self-care (01) ==
PROVIDERS: Visit Provider Internal Medicine
DX: E78.5 Hyperlipidemia, unspecified (principal); M25.511 Pain in right shoulder; F32.A Depression, unspecified
CPT/HCPCS: 99214

== ENCOUNTER 2024-04-11 12:23 | Outpatient (REF) | payer OTHER, SELFPAY ==
--- NOTE | ~2024-04-11 | XR_ITS ---
EXAMINATION: XR SHOULDER, RIGHT CLINICAL INFORMATION: Right shoulder pain. COMPARISON: None available. TECHNIQUE: AP external rotation, Grashey, scapular Y, and axillary views of the right shoulder. FINDINGS: Acromioclavicular joint is borderline widened (8 mm). This could be due to a mild acromioclavicular separation injury or normal variation. Glenohumeral joint is normal. No fracture or glenohumeral malalignment. Bone mineralization is normal. Soft tissues are unremarkable. XR/XR shoulder RT min 2V IMPRESSION: 1. Borderline widening of the acromioclavicular joint which could be due to a mild acromioclavicular separation injury or normal variation. 2. No acute fracture. Normal glenohumeral alignment Electronically signed by: Woo Keys MD 05/06/2024 05:37 PM EDT
== END 2024-04-11 12:24 | disposition home or self-care (01) ==
LOC: HO.HMGCX 12:23
PROVIDERS: PCP Internal Medicine; Visit Provider Internal Medicine
DX: M25.511 Pain in right shoulder (principal)
CPT/HCPCS: 73030

== ENCOUNTER 2024-06-10 07:00 | Outpatient (RCR) | payer OTHER, SELFPAY ==
--- NOTE | 2024-05-13 07:51 | MHC.PT.EP ---
[facility] [place] [facility] [place] [facility] [place] [facility] [address] Cris Carrero [address] [phone] F: [phone] F: [phone] F: [phone] F: [phone] Physical Therapy Plan of Care Date of Evaluation: 05/13/24 Date of Surgery: n/a Diagnosis: R shoulder pain Assessment: Patient is a 28 year old female presenting to PT with complaints of pain in her R shoulder. Pt reports onset of pain began 1 year ago due to lifting weights. She presents today with impairments in pain, ROM, tissue density, posture, strength. 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 Clinical presentation today is most consistent with signs and sx associated with R shoulder pain and pt will benefit from skilled PT 2 week x 4 weeks to address the following problems and impairments noted upon evaluation: pain, ROM, tissue density, posture, strength. These problems limit the patient with the following functional activities: reaching, lifting, ADLs, work. The prescribed treatment plan of care is medically necessary. Co-morbidities of none were identified and taken into considerations of plan of care. Pt was educated on HEP, role of PT, prognosis, POC. Frequency and Duration: The patient will be seen 2 x week x 4 weeks Short Term Goals: Pt will demonstrate symmetrical ROM in 2 weeks without pain. Pt will demonstrate improved R shoulder MMT strength to 5/5 in 2 weeks with min to no pain. Pt will demonstrate improved posture during sessions as evidence by min to no cues for correction in 2 weeks. Fpc Goals: Pt will demonstrate improved SPADI score by 13 points in 4 weeks for improved functional mobility. Pt will demonstrate ability to reach and lift with min to no pain in 4 weeks for improved tolerance to ADLs. Pt will demonstrate ability to work a full day without onset of discomfort in 4 weeks for return to PLOF. Treatment Plan: Modalities to reduce pain, spasms and effusion. Manual therapy to restore motion and function. Therapeutic exercise to improve strength and flexibility. Neuromuscular re-education for posture and balance. Therapeutic activities to return to functional activities of daily living. Electronically signed by: Fany Caro, PT, DPT, ATC Please sign and return to therapist. Thank you for your referral.
--- NOTE | 2024-07-10 08:23 | MHC.PT.DC ---
[facility] [place] [facility] [place] [facility] [place] Office [address] Cris Carrero [address] [phone] F: [phone] F: [phone] F: [phone] F: [phone] Physical Therapy Discharge Report Diagnosis: R shoulder pain Date of Surgery: n/a Date of Evaluation: 05/13/24 Date of Discharge: 07/10/24 Treatments to Date: 2 Cancellations to Date: No Shows to Date: Discharge Status: Patient Elected to Stop Discharge Summary: Pt has not returned to PT in >30 days and therefore to be d/c per plan last visit. Electronically signed by: Fany Caro, PT, DPT, ATC Please sign and return to therapist. Thank you for your referral.
== END 2024-07-10 08:23 | disposition home or self-care (01) ==
LOC: HO.PTCHIC 07:00
PROVIDERS: PCP Internal Medicine; Visit Provider Internal Medicine
DX: M25.511 Pain in right shoulder (principal)
CPT/HCPCS: 97110; 97140; 97161

== ENCOUNTER 2024-10-11 08:25 | Outpatient (AMB) | payer OTHER, SELFPAY ==
[2024-10-11 08:29] VITALS: BP 130/80; PULSE 95; TEMP 36.6; O2SAT 98; BMI 39.4
--- NOTE | 2024-10-11 08:29 | A.OFFPC_ITS ---
Vital Signs 10/11/24 08:29 Height 5 ft Weight 202 lb BMI 39.4 BP 130/80 Blood Pressure Location Lt brachial Position Sitting Pulse 95 Pulse Source Pulse Oximeter Temp 97.9 F Temp Source Oral Pulse Oximetry (%) 98 Oxygen Delivery Method Room Air Intake Visit Reasons: PE Allergies sertraline Adverse Reaction (Verified 10/11/24 08:43) Migraine Medication List - Last Reconciled 10/11/24 by Columba Rollins MD albuterol sulfate 90 mcg/actuation (Ventolin HFA) 1 inh inhalation QID PRN Tobacco use date assessed: 10/11/24 Dental Screening Dental Screen Date: 10/11/24 Did you have a dental visit in the last 12 months?: Yes Did you have a dental problem in the last 6 months where you did not have access to dental care?: No Was dental information given to patient?: Patient has dentist HPI PE HPI Details Pt presents for PE. Pt reports feeling tired, sleeping for >10 hr. Pt stopped taking Zoloft because it was not helpful. Patient is established with a therapist. She denies suicide ideation change in appetite and has been working full-time. 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 1. Little interest or pleasure in doing things: nearly every day 2. Feeling down, depressed, or hopeless: more than half the days 3. Trouble falling or staying asleep, or sleeping too much: nearly every day 4. Feeling tired or having little energy: nearly every day 5. Poor appetite or overeating: more than half the days 6. Feeling bad about yourself - or that you are a failure or have let yourself or your family down: several days 7. Trouble concentrating on things, such as reading the newspaper or watching television: nearly every day 8. Moving or speaking so slowly that other people could have noticed. Or the opposite - being so fidgety or restless that you have been moving around a lot more than usual: not at all 9. Thoughts that you would be better off or of hurting yourself in some way: not at all Total score: 17 Depression Screening Interpretation: Positive (Patient is established with a therapist. She declined taking antidepressants) Depression Screening Follow-up: Existing condition and In treatment Depression Screening Done: Yes 22438 - PHQ-9 Billing: Yes Source: Developed by Drs. Jaime Ward, Roxie Sauer, Alfonso Farley and colleagues, with an educational tanya from [employer]. Thrive Questionnaire Date Thrive assessed: 10/11/24 I am a: Patient What is your living situation today?: I have a steady place to live Within the past 12 months, did the food you bought not last and you didn't have the money to get more?: Never true Within the past 12 months, did you worry whether your food would run out before you got money to buy more?: Never true Do you have trouble paying for medicines?: No Do you have trouble getting transportation to medical appointments?: Yes Do you have trouble paying your heating and electricity bill?: No Do you have trouble taking care of your child, family member or friend?: No Do you have trouble with day-to-day activities such as bathing, preparing meals, shopping, managing finances, etc.?: No Are you currently unemployed and looking for a job?: No Are you interested in more education?: No Please select the resources that you would like help with: None Currently or been in a relationship where the following occur: No concerns reported THRIVE Score: 1 AUDIT C Alcohol Use Questionnaire (AUDIT-C) 1. How often do you have a drink containing alcohol?: Monthly or less 2. How many drinks containing alcohol do you have on a typical day when you are drinking?: 1 or 2 3. How often do you have six or more drinks on one occasion?: Never Total Score: 1 Score Reviewed/Action Taken: Yes NOLVIA-7 AMB Questionnaire NOLVIA-7 Date NOLVIA - 7 assessed: 10/11/24 Feeling nervous, anxious, or on edge: 3 = Nearly every day Not being able to stop or control worryin = Nearly every day Worrying too much about different things: 3 = Nearly every day Trouble relaxin = Nearly every day Being so restless that it is hard to sit still: 1 = Several days Becoming easily annoyed or irritable: 1 = Several days Feeling afraid as if something awful might happen: 1 = Several days Total NOLVIA-7 score (0-4 normal; 5-9 mild; 10-14 moderate; 15-21 severe): 15 Source: Developed by Drs. Jaime Ward, Rxoie Sauer, Alfonso Farley and colleagues, with an educational tanya from [employer]. NOLVIA-7 Assessment Billing NOLVIA-7 Assessment Tool: NOLVIA-7 Assessment 46139 Review of Systems Const All systems reviewed & are unremarkable except as noted in HPI and below Eyes Reports no additional complaints ENT Reports no additional complaints Card Reports no additional complaints Resp Reports no additional complaints GI Reports no additional complaints Reports no additional complaints Physical exam (Primary Care) Vital Signs: Last Vital Signs Temp 97.9 F 10/11/24 08:29 Pulse 95 10/11/24 08:29 BP 130/80 10/11/24 08:29 Pulse Ox 98 10/11/24 08:29 Oxygen Delivery Method Room Air 10/11/24 08:29 BMI result Body Mass Index 39.4 Tobacco/Smoking Status: Tobacco use Status Tobacco use date assessed 10/11/24 10/11/24 08:35 Patient Tobacco Use Status Never used Tobacco 10/11/24 08:46 e-Cigarette/Vaping Use Never Used 10/11/24 08:46 PHQ-9: PHQ-9 Score PHQ-9: Total score 17 10/11/24 09:01 Depression Screening Interpretation: Positive (Patient is established with a therapist. She declined taking antidepressants) Depression Screening Follow-up: Existing condition and In treatment Thrive Assessment: Date of Thrive Assessment Date Thrive assessed 10/11/24 10/11/24 08:29 Currently or been in a relationship where the following occur: No concerns reported Const General: no acute distress HENMT Head: Yes normal to inspection Ears: hearing grossly normal bilaterally Face and sinus: Yes normal facial exam Mouth: Normal oral and palatal mucosa present Throat: Yes posterior oropharynx normal Eyes General: appearance normal, both eyes and all related structures Neck Neck: Yes no lymphadenopathy and Yes supple Resp Effort & Inspection: normal respiratory effort Auscultation: clear to auscultation bilaterally Cardio Rhythm: regular rhythm Heart sounds: S1 normal heart sound present and S2 normal heart sound present GI Inspection: Yes normal to inspection Palpation (GI): Soft to palpation Percussion: Yes normal to percussion Auscultation: normal bowel sounds Coding Level of Care Code Est Pt Prev Care 18-39y(53650) Diagnoses Annual physical exam Z00. Hyperlipidemia E78.5 Anxiety F41.9 Additional Codes NOLVIA-7 Assessment Billing - NOLVIA-7 Assessment Tool: NOLVIA-7 Assessment 91482 ([id number]) PHQ-9 - 24178 - PHQ-9 Billing: Yes ([id number]) Assessment & Plan Assessment & Plan (1) Annual physical exam: Code(s): Z00.00 - Encounter for general adult medical examination without abnormal findings Category: Medical Plan: Well-balanced diet regular physical activity discussed with the patient. She is established with obstetrician and gynaecologist for pelvic exam and Pap smear (2) Hyperlipidemia: Code(s): E78.5 - Hyperlipidemia, unspecified Category: Medical Plan: Low-cholesterol diet increase physical activity weight loss discussed with the patient (3) Anxiety: Comment: Started on sertraline 10/14, stopped 07/2024 not affective, she follows-up with therapy, patient declined taking medications Code(s): F41.9 - Anxiety disorder, unspecified Category: Medical Plan: Continue psychotherapy Orders: Orders Comprehensive [place]. Panel Fast Today Z00.00 - Encounter for general adult medical examination without abnormal findings Lipid Panel Today Z00.00 - Encounter for general adult medical examination without abnormal findings Complete Blood Count Auto Diff Today Z00.00 - Encounter for general adult medical examination without abnormal findings TSH reflex Free T4 Today Z00.00 - Encounter for general adult medical examination without abnormal findings Vitamin D 25-OH Total Today Z00.00 - Encounter for general adult medical examination without abnormal findings
--- OUTSIDE RECORDS SUMMARY | 2024-10-11 08:38 | XMS_ITS | Clinical Summary ---
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 Role Phone Unavailable Primary Care Provider Unavailabl e Social History Tobacco Use Types Packs/Day Years Used Date Smoking Tobacco: Never Assessed Comments Unknown Sex and Gender Information Value Date Recorded Sex Assigned at Not on file Legal Sex Female 10:10 PM EST Gender Identity Not on file Sexual Orientation Not on file Plan of Treatment Health Maintenance Due Date Last Done Comments DTaP,Tdap,and Td Vaccines (1 - Tdap) 2014 Hepatitis B Vaccines (1 of 3 - 19+ 3-dose series) 2014 Cervical Cancer Screening: P ap Smear 2016 COVID-19 Vaccine ( - 2023-2 5 season) 2024 Influenza Vaccine (#1) 2024 HIB Vaccines Aged Out No longer eligi ble based on patient's age to complete this topic HPV Vaccines Aged Out No longer eligi ble based on patient's age to complete this topic Hepatitis A Vaccines Aged Out No long er eligible based on patient's age to complete this topic IPV Vaccines Aged Out No longer eligi ble based on patient's age to complete this topic MMR Vaccines Aged Out No longer eligi ble based on patient's age to complete this topic Meningococcal ACWY Vaccine Aged Out N o longer eligible based on patient's age to complete this topic Meningococcal B Vacine Aged Out No lo nger eligible based on patient's age to complete this topic Pneumococcal Vaccine: Pediat rics (0 to 5 Years) and At-Risk Patients (6 to 64 Years) Aged Out No longer eligible b ased on patient's age to complete this topic RSV Immunization Patients Un patt 20 months Aged Out No longer eligible b ased on patient's age to complete this topic Varicella Vaccines Aged Out No longer eligible based on patient's age to complete this topic
== END 2024-10-11 08:53 | disposition home or self-care (01) ==
PROVIDERS: PCP Internal Medicine; Visit Provider Internal Medicine
DX: Z00.00 Encounter for general adult medical examination without abnormal findings (principal); E78.5 Hyperlipidemia, unspecified; F41.9 Anxiety disorder, unspecified

== ENCOUNTER → 2024-10-11 08:25 | Outpatient (BNVA) | payer OTHER, SELFPAY | PROVIDERS: PCP Internal Medicine; Visit Provider Internal Medicine | DX: Z00.00 Encounter for general adult medical examination without abnormal findings (principal); E78.5 Hyperlipidemia, unspecified; F41.9 Anxiety disorder, unspecified | CPT/HCPCS: 96127 ==